=== PATIENT | male | born 1965 | race Caucasian/White ===

== ENCOUNTER → 2016-12-19 | Outpatient (CLI) | payer MEDICARE, MEDICAID ==
[~2016-12-19] MED LIST: ALLERCLEAR10 MG PO; ARTIFICIAL TEAR1510 OU; ATROPINE PO; DEPAKENE 250 MG/1 ML PO; DULCOLAX10 M1 REC; EYE DROPS REDNE15 ML OU; FOLIC ACID1 MG PO; LORAZEPAM2 MG/M1 PO; MAGNESIUM1.75 GM/30 PO; MICONAZOLE1 POW TOP; MIRALAX17 GM PO; MOBIC7.5 MG PO; PEPCID 20MG TAB20 MG PO; PERIDEX (CHLOR480 ML TOP; SENOKOT NATURA8.6 MG PO; TRANSDERM0.33 MG/24 TOP; TYLENOL 325MG325 MG PO; [UNRECOGNIZED DRUG - OTHER] TD
== END ==
LOC: LAB 04:50
DX: G40.109 Localization-related (focal) (partial) symptomatic epilepsy and epileptic syndromes with simple partial seizures, not intractable, without status epilepticus (principal)

== ENCOUNTER 2017-01-11 16:22 | Emergency (ER) | payer MEDICARE, MEDICAID ==
[~2017-01-11 16:22] MED LIST changes: -EYE DROPS REDNE15 ML OU; -PERIDEX (CHLOR480 ML TOP; -[UNRECOGNIZED DRUG - OTHER] TD
[2017-01-11] MEDS ORDERED: PERIDEX (CHLOR480 ML TOP (16:41)
[2017-01-11] MEDS ORDERED: EYE DROPS REDNE15 ML OU (16:47)
[2017-01-11] MEDS ORDERED: [UNRECOGNIZED DRUG - OTHER] TD (16:49)
[2017-01-11 18:52] VITALS: BP 108/60
== END 2017-01-11 19:00 | disposition other institution (70) ==
LOC: ED 16:22
DX: R40.4 Transient alteration of awareness (principal); D69.6 Thrombocytopenia, unspecified; Q90.9 Down syndrome, unspecified
CPT/HCPCS: J7040

== ENCOUNTER 2017-01-11 17:17 | Inpatient (IN) | payer MEDICARE, MEDICAID ==
[~2017-01-11 17:17] MED LIST changes: +EYE DROPS REDNE15 ML OU; +PERIDEX (CHLOR480 ML TOP; +[UNRECOGNIZED DRUG - OTHER] TD
[2017-01-11 19:41] VITALS: BP 108/60
[2017-01-11 19:44] VITALS: BP 108/60
[2017-01-11 23:02] VITALS: BP 115/57
[2017-01-12 03:01] VITALS: BP 138/65
[2017-01-12 06:34] VITALS: BP 136/81
[2017-01-12 11:31] VITALS: BP 125/46
[2017-01-12 15:17] VITALS: BP 107/72
[2017-01-12 18:12] VITALS: BP 126/80
[2017-01-12 23:19] VITALS: BP 135/83
[2017-01-13 03:05] VITALS: BP 128/67
[2017-01-13 06:32] VITALS: BP 135/95
[2017-01-13 11:00] VITALS: BP 110/70
[2017-01-13 15:04] VITALS: BP 123/80
[2017-01-13 15:53] VITALS: BP 123/80
== END 2017-01-13 16:56 | DRG 641 ==
LOC: MED/SURG 17:17
PROVIDERS: ADMIT Nurse Practitioner Family
DX: E87.1 Hypo-osmolality and hyponatremia (principal); R41.82 Altered mental status, unspecified; Q90.9 Down syndrome, unspecified; Z66 Do not resuscitate; F03.90 Unspecified dementia, unspecified severity, without behavioral disturbance, psychotic disturbance, mood disturbance, and anxiety; D70.9 Neutropenia, unspecified; D69.6 Thrombocytopenia, unspecified; G40.909 Epilepsy, unspecified, not intractable, without status epilepticus; I50.9 Heart failure, unspecified; E66.9 Obesity, unspecified; R53.1 Weakness; J45.909 Unspecified asthma, uncomplicated; I51.7 Cardiomegaly; K59.00 Constipation, unspecified; K21.9 Gastro-esophageal reflux disease without esophagitis; G47.30 Sleep apnea, unspecified
CPT/HCPCS: J1650; J7030

== ENCOUNTER → 2017-01-11 | Outpatient (CLI) | payer MEDICARE, MEDICAID | LOC: LAB 04:55 | DX: I87.1 Compression of vein (principal) ==

== ENCOUNTER → 2017-02-28 | Outpatient (CLI) | payer MEDICARE, MEDICAID | LOC: LAB 02-27 10:15 | DX: E87.1 Hypo-osmolality and hyponatremia (principal) ==

== ENCOUNTER → 2017-03-21 | Outpatient (CLI) | payer MEDICARE, MEDICAID | LOC: LAB 05:25 | DX: F79 Unspecified intellectual disabilities (principal); D72.819 Decreased white blood cell count, unspecified ==

== ENCOUNTER → 2017-04-10 | Outpatient (CLI) | payer MEDICARE, MEDICAID | LOC: LAB 05:44 | DX: D69.9 Hemorrhagic condition, unspecified (principal); G40.409 Other generalized epilepsy and epileptic syndromes, not intractable, without status epilepticus ==

== ENCOUNTER → 2017-05-15 | Outpatient (CLI) | payer MEDICARE, MEDICAID | LOC: LAB 18:25 | DX: E87.1 Hypo-osmolality and hyponatremia (principal) ==

== ENCOUNTER → 2017-06-21 | Outpatient (CLI) | payer MEDICARE, MEDICAID | LOC: LAB 11:15 | DX: F03.90 Unspecified dementia, unspecified severity, without behavioral disturbance, psychotic disturbance, mood disturbance, and anxiety (principal); D72.819 Decreased white blood cell count, unspecified; I50.9 Heart failure, unspecified ==

== ENCOUNTER → 2017-06-28 | Outpatient (CLI) | payer MEDICARE, MEDICAID | LOC: LAB 06:20 | DX: I10 Essential (primary) hypertension (principal); D72.819 Decreased white blood cell count, unspecified ==

== ENCOUNTER → 2017-07-12 | Outpatient (CLI) | payer MEDICARE, MEDICAID | LOC: LAB 06:25 | DX: D69.6 Thrombocytopenia, unspecified (principal) ==

== ENCOUNTER → 2017-08-24 | Outpatient (CLI) | payer MEDICARE, MEDICAID ==
[2017-08-24 07:48] LABS: URINE APPEARANCE CLOUDY; URINE BILIRUBIN NEGATIVE (NEGATIVE); URINE BLOOD 250 ery/uL (NEGATIVE); URINE COLOR YELLOW; URINE GLUCOSE NEGATIVE (NEGATIVE); URINE KETONE NEGATIVE (NEGATIVE); URINE LEUKOCYTE ESTERASE NEGATIVE (NEGATIVE); URINE NITRATE NEGATIVE (NEGATIVE); URINE PROTEIN(semi-quant) 1+ mg/dL (NEGATIVE); URINE UROBILINOGEN NORMAL (NORMAL); URINE WBC 0-1 /hpf (0-3)
[2017-08-24 07:49] LABS: URINE MUCUS PRESENT (NOT PRESENT)
== END ==
LOC: LAB 04:55
PROVIDERS: Family Medicine
DX: R31.9 Hematuria, unspecified (principal)

== ENCOUNTER 2018-01-19 15:50 | Emergency (ER) | payer MEDICARE, MEDICAID ==
[~2018-01-19] VITALS: Wt 79.2 kg
[2018-01-19] MEDS ORDERED: ALBUTEROL2.5 MG/3 M IH (16:20)
[2018-01-19] MEDS ORDERED: ENEMA 135 ML135 M1 RC (16:22)
[2018-01-19] MEDS ORDERED: HYOSCYAMINE0.125 M7 PO (16:24)
[2018-01-19] MEDS ORDERED: MORPHINE S100 MG/5 M SL (16:25)
[2018-01-19] MEDS ORDERED: K-LOR20 MEQ/PKT PO (16:27)
[2018-01-19 16:58] LABS: HEMATOCRIT 38.2 % (42.0-52.0); HEMOGLOBIN 13.3 g/dL (13.5-18.0); MEAN CELL VOLUME 105 fl (78-100); MEAN CORPUSCULAR HGB CONC 35 g/dL (33-37); MEAN PLATELET VOLUME 10.8 fl (7.4-10.4); PLATELET COUNT 66 K/mm3 (130-400); RED BLOOD COUNT 3.65 M/mm3 (4.20-5.60); RED CELL DISTRIBUTION WIDTH 12.7 % (11.5-14.5); WHITE BLOOD COUNT 4.2 K/mm3 (4.8-10.8)
[2018-01-19 17:01] LABS: MEAN CORPUSCULAR HEMOGLOBIN 36 pg (27-31)
[2018-01-19 17:07] LABS: BUN/CREATININE RATIO 14.7 (6.0-26.0); CALCIUM 8.6 mg/dL (8.4-10.2); POTASSIUM 5.2 mmol/L (3.6-5.0)
[2018-01-19 17:15] LABS: BAND 6 % (0-10); LYMPHOCYTE 32 % (20-51); MONOCYTE 16 % (3-10); NEUTROPHILS 45 % (42-75)
[2018-01-19 18:09] VITALS: BP 169/67
== END 2018-01-19 18:32 | disposition home or self-care (01) ==
LOC: ED 15:50
PROVIDERS: Family Medicine
DX: S09.90XA Unspecified injury of head, initial encounter (principal); S01.01XA Laceration without foreign body of scalp, initial encounter; S00.03XA Contusion of scalp, initial encounter; W17.89XA Other fall from one level to another, initial encounter; Y92.129 Unspecified place in nursing home as the place of occurrence of the external cause; F03.90 Unspecified dementia, unspecified severity, without behavioral disturbance, psychotic disturbance, mood disturbance, and anxiety; Q90.9 Down syndrome, unspecified; G47.30 Sleep apnea, unspecified; Z23 Encounter for immunization
CPT/HCPCS: 90715

== ENCOUNTER → 2018-02-15 | Outpatient (CLI) | payer MEDICARE, MEDICAID ==
[2018-01-19 18:09] VITALS: BP 169/67
[~2018-02-15] MED LIST changes: +ALBUTEROL2.5 MG/3 M IH; +ENEMA 135 ML135 M1 RC; +HYOSCYAMINE0.125 M7 PO; +K-LOR20 MEQ/PKT PO; +MORPHINE S100 MG/5 M SL
== END ==
LOC: LAB 09:00
DX: G40.409 Other generalized epilepsy and epileptic syndromes, not intractable, without status epilepticus (principal)

== ENCOUNTER → 2018-03-21 | Outpatient (CLI) | payer MEDICARE, MEDICAID ==
[2018-03-21 17:50] LABS: URINE APPEARANCE CLOUDY; URINE COLOR RED
[2018-03-21 17:51] LABS: URINE BILIRUBIN NEGATIVE (NEGATIVE); URINE BLOOD 250 ery/uL (NEGATIVE); URINE GLUCOSE NEGATIVE (NEGATIVE); URINE KETONE TR (NEGATIVE); URINE LEUKOCYTE ESTERASE 1+ (NEGATIVE); URINE NITRATE NEGATIVE (NEGATIVE); URINE PROTEIN(semi-quant) 3+ mg/dL (NEGATIVE); URINE UROBILINOGEN 1 mg/dL (NORMAL)
== END ==
LOC: LAB 15:26
PROVIDERS: Family Medicine
DX: R31.9 Hematuria, unspecified (principal); N39.0 Urinary tract infection, site not specified